=== PATIENT | male | born 1995 | race African-American/Black ===

== ENCOUNTER 2017-03-08 13:39 | Emergency (ER) | payer SELFPAY ==
[2017-03-08] MEDS ORDERED: Acetaminophen 500 MG TAB ONE (13:57)
[2017-03-08] MEDS ORDERED: Ondansetron HCl/PF 4 MG/2 ML Vial ONE (14:38)
[2017-03-08] MEDS ORDERED: Ketorolac Tromethamine 30 MG/ML VIAL ONE (14:38)
== END 2017-03-08 15:49 | disposition home or self-care (01) ==
LOC: ERS 13:39
DX: J11.1 Influenza due to unidentified influenza virus with other respiratory manifestations (principal); E10.9 Type 1 diabetes mellitus without complications; F31.9 Bipolar disorder, unspecified; F17.210 Nicotine dependence, cigarettes, uncomplicated
CPT/HCPCS: 96361; 96374; 96375; J1885; J2405

== ENCOUNTER 2018-02-02 06:14 | Emergency (ER) | payer SELFPAY | END 2018-02-02 06:54 | disposition home or self-care (01) | LOC: ERS 06:14 | DX: K02.9 Dental caries, unspecified (principal); E10.9 Type 1 diabetes mellitus without complications; F31.9 Bipolar disorder, unspecified; F17.210 Nicotine dependence, cigarettes, uncomplicated; Z71.6 Tobacco abuse counseling | CPT/HCPCS: 99406 ==

== ENCOUNTER 2018-02-05 16:00 | Inpatient (IN) | payer SELFPAY ==
[2018-02-05] MEDS ORDERED: Ondansetron HCl/PF 4 MG/2 ML Vial ONE (17:02)
[2018-02-05 17:19] LABS: Bilirubin Negative (Negative); Blood, Urine Large (Negative); Clarity CLEAR (Clear); Glucose, Urine (Dipstick) >=1000 mg/dL (Negative); Leukocyte Negative (Negative); Nitrite Negative (Negative); Protein, Urine (Dipstick) 30 mg/dL (Neg-Trace); Specific Gravity, Urine 1.027 (1.002-1.036); Urobilinogen 0.2 mg/dL (0.2-1.0)
[2018-02-05 17:22] LABS: Bacteria/HPF None Seen HPF (None Seen); Hyaline Casts/LPF 0-3 HYALINE CAST LPF (0-3 Hyaline); Pathc Cast-AUWi Flag 0.29 (0-2.49); RBC/HPF GREATER THAN 50-TNTC HPF (0-3); Squamous Epithelial None Seen HPF (0-3); WBC/HPF 0-3 HPF (0-3)
[2018-02-05 18:09] LABS: Hemoglobin 15.1 g/dL (14.0-18.0); Mean Corpuscular HGB CONC 30.8 g/dL (32.0-36.0); Mean Corpuscular Hemoglobin 31.1 pg (27.0-31.0); Mean Platelet Volume 8.5 fL (7.4-10.4); Platelet Count 305 thou/uL (130-400); RBC Distribution Width 12.7 % (11.5-14.5); Red Blood Cell (RBC) Count 4.87 mill/uL (4.70-6.10); White Blood Cell (WBC) Count 24.9 thou/uL (4.8-10.8)
[2018-02-05 18:13] LABS: ALT (SGPT) 51 U/L (8-55); AST (SGOT) 83 U/L (5-34); Albumin 4.4 g/dL (3.5-5.0); Alkaline Phosphatase 117 U/L (40-150); BUN (Urea Nitrogen) 18 mg/dL (8.9-20.6); Bilirubin, Total 0.3 mg/dL (0.2-1.2); Calc. Creatinine Clearance 0 mL/min (70-130); Calcium 8.9 mg/dL (7.8-10.44); Chloride 100 mmol/L (98-107); Estimated GFR-MDRD 49; Globulin 3.4 g/dL (2.4-3.5); Protein, Total 7.8 g/dL (6.0-8.3); Sodium 134 mmol/L (136-145)
[2018-02-05 18:18] LABS: Band 5 % (5-11); Carbon Dioxide Less than 8 mmol/L (22-29); Glucose 712 mg/dL (70-105); Lymphocytes 8 % (21-51); MDiff Complete? YES; Monocytes 2 % (0-10); Neutrophil 84 % (42-75); PLT Morphology Comment Appears Adequate; Potassium 6.6 mmol/L (3.5-5.1); RBC Morphology Normal
[2018-02-05] MEDS ORDERED: Insulin Regular 100 units/100 ml in NS IVPB SCH (18:45)
[2018-02-05 19:00] LABS: Magnesium 2.1 mg/dL (1.6-2.6); Phosphorus 5.3 mg/dL (2.3-4.7)
[2018-02-05] MEDS ORDERED: NS 0.9% w/ 20 MEQ KCL 1,000 ML IV PRN ×2 (19:06)
[2018-02-05] MEDS ORDERED: Bisacodyl 5 MG TAB PO PRN (19:06)
[2018-02-05] MEDS ORDERED: CCU Electrolyte Replacement 1 EACH IVPB ONE (19:06)
[2018-02-05] MEDS ORDERED: Acetaminophen 650 MG Suppository PR PRN (19:06)
[2018-02-05] MEDS ORDERED: Dextrose 5 %-0.45 % NaCl 1,000 ML IV PRN (19:06)
[2018-02-05] MEDS ORDERED: Sodium Chloride 0.9% 1,000 ML IV PRN ×4 (19:06)
[2018-02-05] MEDS ORDERED: Potassium Chloride 40 MEQ in Premix Bag 1 BAG IVPB PRN (19:13)
[2018-02-05] MEDS ORDERED: Potassium Chloride 40 MEQ in Sodium Chloride 0.9% 250 ML 250 ML IVPB PRN (19:13)
[2018-02-05] MEDS ORDERED: CCU ELECTROLYTE REPLACEMENT PROTOCOL FS PRN (19:13)
[2018-02-05] MEDS ORDERED: Magnesium 2 GM/NS 0.9% 100 ML 2 GM in Premix Bag 1 BAG IVPB PRN (19:13)
[2018-02-05] MEDS ORDERED: Potassium Phosphate 9 MMOL in Sodium Chloride 0.9% 100 ML IVPB PRN (19:13)
[2018-02-05] MEDS ORDERED: Magnesium Oxide 400 MG TAB PO PRN ×2 (19:13)
[2018-02-05] MEDS ORDERED: Potassium Phosphate 15 MMOL in Sodium Chloride 0.9% 250 ML 250 ML IV PRN (19:13)
[2018-02-05] MEDS ORDERED: Potassium Chloride 20 MEQ TAB PO PRN (19:13)
[2018-02-05] MEDS ORDERED: Potassium Phosphate 12 MMOL in Sodium Chloride 0.9% 250 ML 250 ML IV PRN (19:13)
[2018-02-05 19:53] LABS: BUN (Urea Nitrogen) 18 mg/dL (8.9-20.6); Calc. Creatinine Clearance 0 mL/min (70-130); Calcium 8.8 mg/dL (7.8-10.44); Chloride 103 mmol/L (98-107); Estimated GFR-MDRD 48; Potassium 5.7 mmol/L (3.5-5.1); Sodium 137 mmol/L (136-145)
[2018-02-05 19:57] LABS: Carbon Dioxide Less than 8 mmol/L (22-29); Glucose 605 mg/dL (70-105)
--- NOTE | 2018-02-05 20:28 | HP ---
DATE OF ADMISSION: 02/05/2018 PRIMARY CARE PROVIDER: José Miguel Huggins. CHIEF COMPLAINT: Vomiting. HISTORY OF PRESENT ILLNESS: Mr. Bruce is a pleasant 22-year-old gentleman who was seen at [facility] on 02/05/2018. He has a history of diabetes mellitus type 1. He reports that he last had diabetic ketoacidosis 3 years ago. He reports being compliant with his medications. He reports that he last took his insulin last night. Today, he vomited 4 times and developed pain all over his body. The pain has resolved, but he reports having nausea. He denies any fevers or chills. He denies any cough. He denies any dysuria. He denies any increased frequency of urination. He reports feeling slightly better after he came to the emergency room. REVIEW OF SYSTEMS: All other systems reviewed and found to be negative. PAST MEDICAL HISTORY: Diabetes mellitus type 1. PAST SURGICAL HISTORY: None. PSYCHIATRIC HISTORY: Bipolar disorder. FAMILY HISTORY: Significant for diabetes mellitus and sickle cell disease. ALLERGIES: No known drug allergies. CURRENT MEDICATIONS: Humalog insulin by sliding scale, Lantus 15 units subcutaneously at night. SOCIAL HISTORY: Denies alcohol or recreational drug use, smokes 4-7 cigarettes a day. PHYSICAL EXAMINATION: GENERAL: Mr. Bruce is awake and alert, not in acute distress. VITAL SIGNS: Blood pressure is 159/80, pulse 110, respiratory rate 29, oxygen saturation 100% on room air and he is afebrile. EYES: No scleral icterus. No conjunctival pallor. ENT: Dry mucosal membranes. No oropharyngeal erythema or exudates. NECK: Supple, nontender. Trachea is midline. RESPIRATORY: Accessory muscles of breathing are mildly active. Chest wall movements are symmetric bilaterally. LUNGS: Clear to auscultation without wheeze, rhonchi or crepitations. CARDIOVASCULAR: S1 and S2 are heard, tachycardic and regular. Peripheral pulses palpable. No carotid bruit. No pericardial rub. ABDOMEN: Soft, nontender, bowel sounds heard, no hepatomegaly, no splenomegaly. NEUROLOGIC: Cranial nerves II-XII intact. Deep tendon reflexes 2+. MUSCULOSKELETAL: Power is 5/5 in all 4 extremities. The patient has scoliosis. SKIN: No rashes or subcutaneous nodules. LYMPHATIC: No cervical lymphadenopathy. PSYCHIATRIC: Normal mood, normal affect, the patient is oriented to person, place and time. LABORATORY DATA: Mr. Bruce' labs and investigations were reviewed. I reviewed his electrocardiogram, which shows normal sinus rhythm, no ST changes to suggest an acute coronary syndrome, no tall tented T waves. I also reviewed his chest x-ray, which does not show any pulmonary infiltrates. He has hyponatremia with sodium of 134, hyperkalemia with potassium 6.6, acidosis with carbon dioxide less than 8, normal blood urea nitrogen, elevated creatinine of 2.06, elevated glucose of 712, calcium normal at 8.9, phosphorus elevated at 5.3, normal magnesium, elevated AST of 83, normal ALT, normal alkaline phosphatase, leukocytosis with 24,900 white cells, of which 84% are neutrophils. Urinalysis positive for protein, glucose, ketones and blood, but negative for nitrite and leukocyte esterase and elevated beta hydroxybutyrate level of 12.06. ASSESSMENT AND PLAN: Mr. Bruce is a pleasant 22-year-old gentleman who was seen at [facility] on 02/05/2018. His problem list includes: 1. Diabetic ketoacidosis: Mr. Bruce is presenting with diabetic ketoacidosis. Etiology is unclear. There is no evidence of infection on the chest x-ray or on urinalysis. He does report vomiting a few times. It is possible that he had viral gastroenteritis. He will be admitted to the hospital for further management including intravenous fluids and insulin and electrolytes per diabetic ketoacidosis protocol. 2. Hyponatremia: Mild, likely secondary to hyperglycemia. Treat diabetic ketoacidosis and recheck sodium level. 3. Leukocytosis: Etiology is unclear. At this point in time, there is no clear evidence of infection, I am not starting him on antibiotics. We will consider antibiotics if he develops signs or symptoms of infection. 4. Tobacco abuse: The patient has been counseled regarding tobacco cessation. We will start him on nicotine replacement therapy. 5. Metabolic acidosis: Secondary to diabetic ketoacidosis. Treat diabetic ketoacidosis and recheck bicarbonate level. 6. Acute renal insufficiency: Secondary to dehydration from diabetic ketoacidosis. Provide intravenous hydration and recheck creatinine level in the morning. Many thanks for allowing me to participate in your patient's care. Please feel free to contact me with any questions or concerns. LEVEL OF RISK: High. LEVEL OF COMPLEXITY: High. MTDD
[2018-02-05] MEDS ORDERED: Ondansetron HCl/PF 4 MG/2 ML Vial IVP PRN (20:37)
[2018-02-05] MEDS ORDERED: Ondansetron ODT 4 MG TAB SL PRN (20:37)
--- NOTE | 2018-02-05 21:03 | RAD ---
PORTABLE CHEST: 02/05/18 HISTORY: Vomiting, infection. Heart size and mediastinum are within normal limits. Lungs are clear of any infiltrative process. The re is scoliotic changes of the spine. IMPRESSION: No active intrathoracic disease. POS: [facility]
[2018-02-05 22:16] VITALS: BMI 21.9
[2018-02-05] MEDS: Nicotine 14 MG PATCH TD SCH (23:11)
[2018-02-05 23:49] LABS: Anion Gap 29 mmol/L (10-20); BUN (Urea Nitrogen) 14 mg/dL (8.9-20.6); Calc. Creatinine Clearance 52 mL/min (70-130); Calcium 8.8 mg/dL (7.8-10.44); Chloride 108 mmol/L (98-107); Estimated GFR-MDRD 59; Glucose 200 mg/dL (70-105); Potassium 4.8 mmol/L (3.5-5.1); Sodium 141 mmol/L (136-145)
[2018-02-05 23:52] LABS: Carbon Dioxide 9 mmol/L (22-29)
[2018-02-06] MEDS: D5 1/2 NS w/20 mEq KCL 1,000 ML IV PRN ×2 (03:11→07:20)
[2018-02-06 03:57] LABS: Hemoglobin 13.6 g/dL (14.0-18.0); Mean Corpuscular HGB CONC 32.3 g/dL (32.0-36.0); Mean Corpuscular Hemoglobin 30.6 pg (27.0-31.0); Mean Corpuscular Volume 94.9 fL (78.0-98.0); Mean Platelet Volume 7.9 fL (7.4-10.4); Platelet Count 269 thou/uL (130-400); RBC Distribution Width 12.5 % (11.5-14.5); Red Blood Cell (RBC) Count 4.45 mill/uL (4.70-6.10); White Blood Cell (WBC) Count 16.5 thou/uL (4.8-10.8)
[2018-02-06 04:08] LABS: Anion Gap 16 mmol/L (10-20); BUN (Urea Nitrogen) 10 mg/dL (8.9-20.6); Calc. Creatinine Clearance 63 mL/min (70-130); Calcium 8.2 mg/dL (7.8-10.44); Carbon Dioxide 14 mmol/L (22-29); Chloride 111 mmol/L (98-107); Estimated GFR-MDRD 72; Glucose 158 mg/dL (70-105); Potassium 3.8 mmol/L (3.5-5.1); Sodium 137 mmol/L (136-145)
[2018-02-06 07:31] LABS: Anion Gap 14 mmol/L (10-20); BUN (Urea Nitrogen) 7 mg/dL (8.9-20.6); Calc. Creatinine Clearance 67 mL/min (70-130); Carbon Dioxide 15 mmol/L (22-29); Chloride 111 mmol/L (98-107); Estimated GFR-MDRD 79; Glucose 166 mg/dL (70-105); Potassium 3.9 mmol/L (3.5-5.1); Sodium 136 mmol/L (136-145)
[2018-02-06] MEDS: Acetaminophen 325 MG TAB PO PRN (09:05)
[2018-02-06 13:34] LABS: Anion Gap 15 mmol/L (10-20); BUN (Urea Nitrogen) 5 mg/dL (8.9-20.6); Calc. Creatinine Clearance 69 mL/min (70-130); Calcium 8.2 mg/dL (7.8-10.44); Carbon Dioxide 15 mmol/L (22-29); Chloride 108 mmol/L (98-107); Estimated GFR-MDRD 81; Glucose 206 mg/dL (70-105); Potassium 4.2 mmol/L (3.5-5.1); Sodium 134 mmol/L (136-145)
--- NOTE | 2018-02-06 16:27 | PDOC.PN ---
- Subjective Encounter Start Date: 02/06/18 Encounter Start Time: 16:31 Pt seen forfollowup re: DKA. Feels better. Denies nausea, vomiting or abdo pain. - Objective MAR Reviewed: Yes Vital Signs & Weight: Vital Signs (12 hours) Temp Pulse Resp BP Pulse Ox 02/06/18 15:21 99.0 F 108 H 16 114/64 100 02/06/18 11:05 99.1 F 84 15 119/59 L 100 02/06/18 08:00 100 02/06/18 07:39 100 02/06/18 07:16 98.8 F 98 15 115/64 100 Weight Weight 124 lb 1.924 oz I&O: 02/05/18 02/06/18 02/07/18 06:59 06:59 06:59 Intake Total 2329 2780 Output Total 1250 650 Balance 1079 2130 Result Diagrams: 02/06/18 03:19 02/06/18 13:01 Additional Labs: Accuchecks 02/06/18 02/06/18 02/06/18 16:07 15:01 13:57 POC Glucose 148 H 172 H 206 H 02/06/18 02/06/18 02/06/18 12:59 11:02 09:58 POC Glucose 181 H 187 H 174 H 02/06/18 02/06/18 02/06/18 09:00 07:59 07:17 POC Glucose 159 H 148 H 143 H 02/06/18 02/06/18 02/06/18 05:51 04:23 03:06 POC Glucose 156 H 152 H 143 H 02/06/18 02/06/18 02/06/18 02:17 01:02 00:14 POC Glucose 149 H 157 H 164 H 02/05/18 02/05/18 02/05/18 23:07 22:07 21:13 POC Glucose 152 H 189 H 257 H Phys Exam - Physical Examination Constitutional: NAD HEENT: moist MMs, sclera anicteric, oral pharynx no lesions, 2+ tonsils Neck: no nodes, no JVD, supple, full ROM Respiratory: no wheezing, no rales, no rhonchi, clear to auscultation bilateral Cardiovascular: RRR, no rub S1, S2 Gastrointestinal: soft, non-tender, no distention, positive bowel sounds Neurological: moves all 4 limbs Psychiatric: normal affect Deviation from normal: Oriented to person and place, not to time Dx/Plan (1) DKA (diabetic ketoacidoses) Code(s): E13.10 - OTH DIABETES MELLITUS WITH KETOACIDOSIS WITHOUT COMA Status : Acute Comment: Improving, will transition to sc insulin and diabetic diet (2) AMADA (acute kidney injury) Code(s): N17.9 - ACUTE KIDNEY FAILURE, UNSPECIFIED Status: Acute Comment: Likely due to DKA, creatinine improved to 1.33 (3) Tobacco abuse Code(s): Z72.0 - TOBACCO USE Status: Chronic Comment: continue nicotine patch (4) Hyperkalemia Code(s): E87.5 - HYPERKALEMIA Status: Resolved - Plan * . Review of Systems - Review of Systems Constitutional: negative: fever, chills, sweats, weakness, malaise Respiratory: negative: Cough, Shortness of Breath, SOB with Excertion, Pleuritic Pain, Wheezing Cardiovascular: negative: chest pain, palpitations, orthopnea, paroxysmal nocturnal dyspnea, edema, light headedness Gastrointestinal: negative: Nausea, Vomiting, Abdominal Pain, Diarrhea, Constipation, Melena, Hematochezia Genitourinary: negative: Dysuria, Frequency, Incontinence, Hematuria, Retention Skin: negative: Rash, Lesions, Jaciel, Bruising - Medications/Allergies Allergies/Adverse Reactions: Allergies Allergy/AdvReac Type Severity Reaction Status Date / Time No Known Allergies Allergy Verified 02/05/18 22:21 Medications: Current Medications Acetaminophen (Tylenol) 650 mg PO Q4H PRN PRN Reason: Headache/Fever or Pain Last Admin: 02/06/18 09:05 Dose: 650 mg Acetaminophen (Tylenol) 650 mg [place] Q4H PRN PRN Reason: Headache/Fever or Pain Bisacodyl (Dulcolax) 10 mg PO DAILYPRN PRN PRN Reason: Constipation Dextrose/Water (Dextrose 50%) 25 gm SLOW IVP PRN PRN PRN Reason: Hypoglycemia Glucagon (Glucagon) 1 mg IM PRN PRN PRN Reason: Hypoglycemia Insulin Human Regular 100 (units/ Sodium Chloride) 101 mls @ 0 mls/hr IVPB INF HORTENSIA Insulin Human Regular 100 (units/ Sodium Chloride) 101 mls @ 0 mls/hr IVPB INF HORTENSIA; Protocol Dextrose/Sodium Chloride (D5 1/2 Ns) 1,000 mls @ 250 mls/hr IV .Q4H PRN; Protocol PRN Reason: Step 4 of DKA Protocol Last Admin: 02/05/18 23:07 Dose: 1,000 mls Potassium Chloride/Dextrose/Sod Cl (D5 1/2 Ns W/20 Meq Kcl) 1,000 mls @ 250 mls /hr IV .Q4H PRN; Protocol PRN Reason: Step 4 of DKA Protocol Last Admin: 02/06/18 07:20 Dose: 1,000 mls Sodium Chloride (Normal Saline 0.9%) 1,000 mls @ 500 mls/hr IV .Q2H PRN; Protocol PRN Reason: Step 1 of DKA Protocol Sodium Chloride (Normal Saline 0.9%) 1,000 mls @ 1,000 mls/hr IV .Q1H PRN; Protocol PRN Reason: Step 1 of DKA Protocol Sodium Chloride (Normal Saline 0.9%) 1,000 mls @ 250 mls/hr IV .Q4H PRN; Protocol PRN Reason: SEE STEP 3 OF DKA PROTOCOL Last Admin: 02/05/18 21:11 Dose: 1,000 mls Sodium Chloride (Normal Saline 0.9%) 1,000 mls @ 500 mls/hr IV .Q2H PRN; Protocol PRN Reason: Step 2 of DKA Protocol Potassium Chloride/Sodium Chloride (Ns 0.9% W/ 20 Meq Kcl) 1,000 mls @ 500 mls/ hr IV .Q2H PRN; Protocol PRN Reason: Step 2 of DKA Protocol Potassium Chloride/Sodium Chloride (Ns 0.9% W/ 20 Meq Kcl) 1,000 mls @ 250 mls/ hr IV .Q4H PRN; Protocol PRN Reason: SEE STEP 3 OF DKA PROTOCOL Potassium Chloride 40 meq/ (Sodium Chloride) 270 mls @ 135 mls/hr IVPB ASDIR PRN PRN Reason: FOR SERUM K+ 2.5 - 3.5 Potassium Chloride 40 meq/ (Device) 100 mls @ 50 mls/hr IVPB ASDIR PRN PRN Reason: FOR SERUM K+ 2.5 - 3.5 Magnesium Sulfate 1 gm/ Sodium (Chloride) 102 mls @ 102 mls/hr IV PRN PRN PRN Reason: MAG LEVEL 1.4 - 2.0 Magnesium Sulfate 2 gm/ Device 100 mls @ 100 mls/hr IVPB ASDIR PRN PRN Reason: MAGNESIUM < 1.4 Potassium Phosphate 9 mmol/ (Sodium Chloride) 103 mls @ 25.75 mls/hr IVPB ASDIR PRN PRN Reason: Phosphate 1.0-1.8 Potassium Phosphate 12 mmol/ (Sodium Chloride) 254 mls @ 63.5 mls/hr IV ASDIR PRN PRN Reason: Serum phosphate 0.5-0.9 Potassium Phosphate 15 mmol/ (Sodium Chloride) 255 mls @ 63.75 mls/hr IV ASDIR PRN PRN Reason: Serum Phos < 0.5 Dextrose/Water (D5w) 1,000 mls @ 0 mls/hr IV .Q0M PRN PRN Reason: Hypoglycemia Insulin Human Lispro (Humalog) 0 units SC .MILD SLIDING SCALE PRN PRN Reason: Mild Correctional Scale Magnesium Oxide (Magnesium Oxide) 400 mg PO BIDPRN PRN PRN Reason: FOR SERUM MAG 1.4 - 2.0 Magnesium Oxide (Magnesium Oxide) 800 mg PO PRN PRN PRN Reason: FOR SERUM MAG < 1.4 Miscellaneous Medication (Phos-Nak) 1 pkt PO TIDPRN PRN PRN Reason: FOR PHOS LEVEL 1.0 - 1.8 Miscellaneous Medication (Phos-Nak) 2 pkt PO TIDPRN PRN PRN Reason: FOR PHOS LEVEL 0.5 - 1.0 Nicotine (Nicoderm Patch) 7 mg TD Q24HR [facility] Last Admin: 02/05/18 23:11 Dose: Not Given Ccu Electrolyte (Replacement Protocol) 0 each FS PRN PRN PRN Reason: FOR ELECTROLYTE REPLACEMENT Non-Formulary Medication (Insulin Glargine,Hum.Rec.Anlog [Lantus Solostar]) 50 unit SQ QPM HORTENSIA Potassium Chloride (K-Dur) 40 meq PO ASDIR PRN PRN Reason: FOR SERUM K+ 2.5 - 3.5 Potassium Chloride (Klor-Con) 40 meq PER TUBE ASDIR PRN PRN Reason: FOR SERUM K+ 2.5-3.5 Sodium Chloride (Flush - Normal Saline) 10 ml IVF Q12HR [facility] Last Admin: 02/06/18 09:06 Dose: 10 ml Sodium Chloride (Flush - Normal Saline) 10 ml IVF PRN PRN PRN Reason: Saline Flush
[2018-02-06] MEDS ORDERED: Dextrose 50% Abboject 50 ML SYRINGE SLOW IVP PRN (16:29)
[2018-02-06] MEDS ORDERED: Dextrose 5% in Water 1,000 ML IV PRN (16:29)
[2018-02-06] MEDS ORDERED: HumaLOG 300 UNITS/3 ML VIAL SC PRN (16:29)
[2018-02-06] MEDS: Nicotine 14 MG PATCH TD SCH (20:29)
[2018-02-06] MEDS ORDERED: Insulin Glargine 50 UNITS in Pre-Filled Syringe 1 EACH SC SCH (21:00)
[2018-02-06] MEDS ORDERED: Non-Formulary Item 1 EACH (Insulin Glargine,Hum.Rec.Anlog [Lantus Solostar] 50 UNIT) SQ SCH (21:00)
[2018-02-07] MEDS: Acetaminophen 325 MG TAB PO PRN ×2 (00:46→08:41)
[2018-02-07 03:47] LABS: Hemoglobin 13.2 g/dL (14.0-18.0); Mean Corpuscular HGB CONC 33.5 g/dL (32.0-36.0); Mean Corpuscular Hemoglobin 31.3 pg (27.0-31.0); Mean Corpuscular Volume 93.5 fL (78.0-98.0); Mean Platelet Volume 7.5 fL (7.4-10.4); Platelet Count 217 thou/uL (130-400); RBC Distribution Width 12.4 % (11.5-14.5); Red Blood Cell (RBC) Count 4.21 mill/uL (4.70-6.10); White Blood Cell (WBC) Count 5.9 thou/uL (4.8-10.8)
[2018-02-07 04:04] LABS: Anion Gap 10 mmol/L (10-20); BUN (Urea Nitrogen) Less than 4 mg/dL (8.9-20.6); Calc. Creatinine Clearance 98 mL/min (70-130); Calcium 8.6 mg/dL (7.8-10.44); Carbon Dioxide 23 mmol/L (22-29); Chloride 108 mmol/L (98-107); Estimated GFR-MDRD Greater than 90; Sodium 138 mmol/L (136-145)
[2018-02-07 04:09] LABS: Glucose 56 mg/dL (70-105)
[2018-02-07] MEDS: Potassium Chloride 20 MEQ TAB PO SCH ×2 (08:41→11:29)
[2018-02-07 11:32] VITALS: BP 127/60; TEMP 99
--- NOTE | 2018-02-07 18:05 | DIS ---
PRIMARY CARE PROVIDER: [facility]. DATE OF ADMISSION: 02/05/2018 DATE OF DISCHARGE: 02/07/2018 DISCHARGE DIAGNOSES: 1. Diabetic ketoacidosis. 2. Hyperkalemia. 3. Hyponatremia. CONDITION OF PATIENT ON THE DAY OF DISCHARGE: Stable. I assessed Mr. Bruce on the day of discharge. He denies any chest pain or shortness of breath. He feels well. Vital signs are stable. S1 and S 2 are heard, regular. Lungs are clear to auscultation bilaterally. DISCHARGE MEDICATIONS: Lantus insulin 50 units every evening, Nicoderm 7 mg daily patch, and Humalog insulin by sliding scale. HOSPITAL COURSE: Mr. Bruce is a pleasant 22-year-old gentleman, who was admitted to [facility] on 02/05/2018 for diabetic ketoacidosis. Please refer to my history and physical n ote dated 02/05/2018 for further details. He was admitted to the [facility] and treated per DKA protocol. He improved clinically and biochemically. He was started on subcutaneous insulin and diabetic diet on 02/06/2018. He continued to do well and is being discharged home in a stable condition on 018. Many thanks for allowing me to participate in your patient's care. Please feel free to contact me wi th any questions or concerns. On the day of discharge, he has sodium 138, potassium 3.0, which is being replaced, creatinine 0.94, white count 5900, hemoglobin 13.2, and platelet count 217,000. DISCHARGE DESTINATION: Home. TOTAL AMOUNT OF TIME SPENT COORDINATING THIS DISCHARGE: 32 minutes.
== END 2018-02-07 14:25 | disposition home or self-care (01) | DRG 638 ==
LOC: ERS 16:00 → IMCU/EMU 20:24
PROVIDERS: ADMIT Internal Medicine; ATTEND Internal Medicine
DX: E10.10 Type 1 diabetes mellitus with ketoacidosis without coma (principal); E87.1 Hypo-osmolality and hyponatremia; N17.9 Acute kidney failure, unspecified; E87.2 Acidosis; E87.5 Hyperkalemia; F17.210 Nicotine dependence, cigarettes, uncomplicated; Z79.4 Long term (current) use of insulin; N28.9 Disorder of kidney and ureter, unspecified
CPT/HCPCS: 36415; 36416; 71045; 80048; 80053; 81003; 81015; 82010; 83735; 84100; 85025; 85027; 93005; 96361; 96365; 96374; 96375; A4216; J1815; J2405; J7050

== ENCOUNTER 2018-06-28 04:53 | Emergency (ER) | payer SELFPAY ==
[2018-06-28] MEDS ORDERED: Ketorolac Tromethamine 60 MG/2 ML VIAL ONE (05:40)
== END 2018-06-28 06:13 | disposition home or self-care (01) ==
LOC: ERS 04:53
DX: K02.9 Dental caries, unspecified (principal); E10.9 Type 1 diabetes mellitus without complications; F31.9 Bipolar disorder, unspecified; F17.210 Nicotine dependence, cigarettes, uncomplicated
CPT/HCPCS: 96372; 99406; J1885

== ENCOUNTER 2018-07-07 03:21 | Emergency (ER) | payer SELFPAY ==
[2018-07-07] MEDS ORDERED: Ketorolac Tromethamine 30 MG/ML VIAL ONE (04:14)
[2018-07-07 04:44] LABS: Hemoglobin 14.9 g/dL (14.0-18.0); Mean Corpuscular Hemoglobin 30.5 pg (27.0-31.0); Mean Corpuscular Volume 92.5 fL (78.0-98.0); Mean Platelet Volume 8.3 fL (7.4-10.4); Platelet Count 223 thou/uL (130-400); Red Blood Cell (RBC) Count 4.89 mill/uL (4.70-6.10); White Blood Cell (WBC) Count 7.7 thou/uL (4.8-10.8)
[2018-07-07 04:52] LABS: Bilirubin Negative (Negative); Blood, Urine Trace (Negative); Clarity CLEAR (Clear); Glucose, Urine (Dipstick) >=1000 mg/dL (Negative); Leukocyte Negative (Negative); Nitrite Negative (Negative); Protein, Urine (Dipstick) Negative (Neg-Trace); Specific Gravity, Urine 1.022 (1.002-1.036); Urobilinogen 0.2 mg/dL (0.2-1.0)
[2018-07-07 04:54] LABS: Bacteria/HPF None Seen HPF (None Seen); Hyaline Casts/LPF 0-3 HYALINE CAST LPF (0-3 Hyaline); Squamous Epithelial None Seen HPF (0-3); WBC/HPF 0-3 HPF (0-3)
[2018-07-07 05:06] LABS: ALT (SGPT) 23 U/L (8-55); AST (SGOT) 46 U/L (5-34); Albumin 3.9 g/dL (3.5-5.0); Alkaline Phosphatase 76 U/L (40-150); Anion Gap 22 mmol/L (10-20); BUN (Urea Nitrogen) 17 mg/dL (8.9-20.6); Bilirubin, Total 0.2 mg/dL (0.2-1.2); Calc. Creatinine Clearance 0 mL/min (70-130); Calcium 9.5 mg/dL (7.8-10.44); Carbon Dioxide 20 mmol/L (22-29); Chloride 101 mmol/L (98-107); Estimated GFR-MDRD 85; Globulin 3.1 g/dL (2.4-3.5); Glucose 176 mg/dL (70-105); Potassium 3.7 mmol/L (3.5-5.1); Sodium 139 mmol/L (136-145)
[2018-07-07 05:12] LABS: Eosinophils 2 % (0-10); Lymphocytes 54 % (21-51); MDiff Complete? YES; Monocytes 5 % (0-10); Neutrophil 34 % (42-75); Reactive Lymphocytes 5 % (0-10)
--- NOTE | 2018-07-07 08:17 | RAD ---
SINGLE VIEW OF THE CHEST: Comparison: 06-20-14 History: Right rib pain. FINDINGS: Single view of the chest shows a normal sized cardiomediastinal silhouette. There is no evidence of c onsolidation, mass, or pleural effusion. The bones are unremarkable. IMPRESSION: No evidence of acute cardiopulmonary disease. POS: [facility]
== END 2018-07-07 06:13 | disposition home or self-care (01) ==
LOC: ERS 03:21
DX: R07.89 Other chest pain (principal); E10.9 Type 1 diabetes mellitus without complications; F31.9 Bipolar disorder, unspecified; F17.210 Nicotine dependence, cigarettes, uncomplicated
CPT/HCPCS: 36415; 71045; 80053; 81003; 81015; 82010; 84484; 85025; 93005; 96372; J1885